=== PATIENT | female | born 1940 | race Caucasian/White ===

== ENCOUNTER 2022-03-28 05:11 | Day surgery (SDC) | payer OTHER ==
[2022-03-24 16:04] VITALS: BMI 31.7
[2022-03-28] MEDS ORDERED: ONDANSETRON 4 MG/2 ML VIAL IVPUSH PRN (09:33)
[2022-03-28] MEDS ORDERED: oxyCODONE HCL 5 MG TABLET PO PRN (09:33)
[2022-03-28] MEDS ORDERED: ACETAMINOPHEN 325 MG TABLET (FP) PO PRN ×2 (09:33→10:59)
[2022-03-28] MEDS ORDERED: LACTATED RINGERS SOLUTION 1,000 ML IV SCH (09:45)
[2022-03-28] MEDS ORDERED: PROPOFOL 20 ML ONE (09:51)
[2022-03-28] MEDS ORDERED: ONDANSETRON 4 MG/2 ML VIAL ONE (10:21)
[2022-03-28] MEDS ORDERED: IBUPROFEN 400 MG TABLET (FP) PO PRN (10:59)
[2022-03-28 13:16] VITALS: RESP 18
[2022-03-28 13:21] VITALS: BP 139/57; PULSE 67; TEMP 98.7
== END 2022-03-28 12:00 | disposition home or self-care (01) ==
LOC: JASU-SURG 05:11
PROVIDERS: ATTEND Specialist
PROC: 0UDB7ZX Extraction of Endometrium, Via Natural or Artificial Opening, Diagnostic (ICD-10-PCS; 2022-03-28)
PROC: 0UB98ZX Excision of Uterus, Via Natural or Artificial Opening Endoscopic, Diagnostic (ICD-10-PCS; principal; 2022-03-28 10:00)
DX: N95.0 Postmenopausal bleeding (principal); N84.0 Polyp of corpus uteri
CPT/HCPCS: 88305-TC; 94760